=== PATIENT | female | born 1985 | race Caucasian/White ===

== ENCOUNTER 2017-12-13 11:35 | Emergency (ER) | payer OTHER ==
[~2017-12-13] VITALS: Ht 167.6 cm; Wt 113.4 kg
[~2017-12-13 11:35] MED LIST: AZITHROMYCIN 2250 MG PO; NYQUIL D COLD295 ML; PREDNISONE 10 M10 M1 PO; PROAIR HFA8.5 GM IH; TUSSIONEX PENN473 ML PO
[2017-12-13 11:39] VITALS: BP 160/108
[2017-12-13] MEDS ORDERED: NORVASC2.5 MG PO (11:57)
[2017-12-13] MEDS ORDERED: TESSALON PERLE100 MG PO (12:06)
[2017-12-13] MEDS ORDERED: VENTOLIN HFA 1818 GM INH (12:06)
[2017-12-13] MEDS ORDERED: PREDNISONE 20 M20 MG PO (12:06)
== END 2017-12-13 12:11 | disposition home or self-care (01) ==
LOC: ER 11:35
DX: J40 Bronchitis, not specified as acute or chronic (principal); J06.9 Acute upper respiratory infection, unspecified